=== PATIENT | female | born 2005 | race Caucasian/White ===

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

== ENCOUNTER 2024-03-08 01:37 | Outpatient (CLI) | payer MEDICAID, SELFPAY ==
--- OUTSIDE RECORDS SUMMARY | 2024-03-08 01:51 | XMS_ITS | Encounter Summary ---
Author Organization Health system Address [address] [place] [address] Care Team Providers Care Geoint Analyst Name Role Phone Unavailable Primary Care Provider Unavailabl e Encounter Details Date Type Department Care Team (Late st Contact Info) Description 09/09/2023 Lab Requisition [facility] Pathology & Laboratory Medicine - [facility] [address] [place] [address] Outr Resulting Lab, Provider Social History Tobacco Use Types Packs/Day Years Used Date Smoking Tobacco: Never Assessed Sex and Gender Information Value Date Recorded Sex Assigned at Not on file Gender Identity Not on file Sexual Orientation Not on file documented as of this encounter Plan of Treatment Not on file documented as of this encounter Procedures Procedure Name Priority Date/Time Associated Diagnosis Comments CCP ANTIBODIES Routine 09/08/2023 12:30 EST SYPHILIS SEROLOGY Routine 09/08/2023 12: 30 EST HEPATITIS C AB W REFLEX TO HCV RNA BY PCR Routine 09/08/2023 12:30 EST RHEUMATOID FACTOR Routine 09/08/2023 12: 30 EST ANTI NUCLEAR AB (JASON), IFA Routine 09/08/2023 12:30 EST documented in this encounter Results * SYPHILIS SEROLOGY (09/08/2023 12:30 EST) Syphilis Serology Negative Negative 09/11/2023 9:19 EDT [facility] Blood VENOUS BLOOD / Unknown 09/08/2023 12:30 EST 09/09/2023 21:20 EST Provider Outr Resulting Lab IMMUNOLOGY A ND SEROLOGY ORDERABLES Performing Organization Address [facility]/ZIP Co de Phone Number [facility] [address] [place] [address] * HEPATITIS C AB W REFLEX TO HCV RNA BY PCR (09/08/2023 12:30 EST) Hep C Antibody Negative Negative 09/11/2023 11:11 EDT [facility] Blood VENOUS BLOOD / Unknown 09/08/2023 12:30 EST 09/09/2023 21:20 EST Provider Outr Resulting Lab CHEMISTRY & BLOOD GAS ORDERABLES Performing Organization Address [facility] Co de Phone Number [facility] [address] [place] [address] * RHEUMATOID FACTOR (09/08/2023 12:30 EST) Pathologist [facility] Rheumatoid Factor <8.6 <12.0 IU/mL 09/09/2023 21:37 EST [facility] Blood VENOUS BLOOD / Unknown 09/08/2023 12:30 EST 09/09/2023 21:20 EST Provider Outr Resulting Lab CHEMISTRY & BLOOD GAS ORDERABLES Performing Organization Address [facility] Co de Phone Number [facility] [address] [place] [address] * ANTI NUCLEAR AB (JASON), IFA (09/08/2023 12:30 EST) Pathologist [facility] JASON Interpretation Negative Negative 2023 15:36 EDT [facility] Comment:No titer performed, JASON Screen is negative. Blood VENOUS BLOOD / Unknown 09/08/2023 12:30 EST 09/09/2023 21:20 EST Narrative [facility] - 09/12/2023 15:36 EDT Results were obtained with the INOVA NOVA Lite HEp-2 JASON Kit by indirect immunofluorescence. Provider Outr Resulting Lab IMMUNOLOGY A ND SEROLOGY ORDERABLES Performing Organization Address City/[facility] Co de Phone Number [facility] [address] [place] [address] * CCP ANTIBODIES (09/08/2023 12:30 EST) CCP Antibodies <2.5 See Note U/mL 09/11/2023 9:36 EDT [facility] Comment: NOTE: Reference range not established for patients <19 years old. Blood VENOUS BLOOD / Unknown 09/08/2023 12:30 EST 09/09/2023 21:20 EST Provider Outr Resulting Lab IMMUNOLOGY A ND SEROLOGY ORDERABLES Performing Organization Address [facility] Co de Phone Number [facility] [address] [place] [address] documented in this encounter Visit Diagnoses Not on filedocumented in this encounter
--- OUTSIDE RECORDS SUMMARY | 2024-03-08 01:51 | XMS_ITS | Clinical Summary ---
Author Organization [facility] Address [address] [place] [address] Care Team Providers Care Agile Java Developer Name Role Phone Unavailable Primary Care Provider Unavailabl e Social History Tobacco Use Types Packs/Day Years Used Date Smoking Tobacco: Never Assessed Sex and Gender Information Value Date Recorded Sex Assigned at Not on file Gender Identity Not on file Sexual Orientation Not on file Plan of Treatment Health Maintenance Due Date Last Done Comments COVID-19 Vaccine ( season) 2023 Hepatitis B Vaccine (1 of 3 - 19+ 3-dose series) 11/12 Hepatitis C Screen Completed 09/08/2023 Procedures Procedure Name Priority Date/Time Associated Diagnosis Comments HEPATITIS C AB W REFLEX TO HCV RNA BY PCR Routine 09/08/2023 12:30 EST from Last 3 Months or Most Recently Relevant to Health Maintenance Results * HEPATITIS C AB W REFLEX TO HCV RNA BY PCR (09/08/2023 12:30 EST) Hep C Antibody Negative Negative 09/11/2023 11:11 EDT [facility] Blood VENOUS BLOOD / Unknown 09/08/2023 12:30 EST 09/09/2023 21:20 EST Provider Outr Resulting Lab CHEMISTRY & BLOOD GAS ORDERABLES [facility] [address] [place] [address] from Last 3 Months or Most Recently Relevant to Health Maintenance
--- OUTSIDE RECORDS SUMMARY | 2024-03-08 01:51 | XMS_ITS | Encounter Summary ---
Author Organization [facility] Address [address] [place] [address] Care Team Providers Care Outbound Sales Consultant Name Role Phone Unavailable Primary Care Provider Unavailabl e Encounter Details Date Type Department Care Team (Late st Contact Info) Description 09/09/2023 Lab Requisition [facility] Pathology & Laboratory Medicine - [facility] [address] [place], [place] [id number] Outr Resulting Lab, Provider Social History Tobacco [...] Procedure Name Priority Date/Time Associated Diagnosis Comments HIV 1/2 ANTIGEN AND ANTIBODY, 4TH GENERATION Routine 09/08/2023 12:30 EST documented in this encounter Results * HIV 1/2 ANTIGEN AND ANTIBODY, 4TH GENERATION (09/08/2023 12:30 EST) HIV 1 and 2 Antibody/p24 Antigen, 4th Generation Negative Negative 09/11/2023 11:32 EDT [facility] Comment:If acute HIV-1 infec tion is suspected in a high risk patient, submit plasma specimen for HIV-1 RNA quantitation test. Blood VENOUS BLOOD / Unknown 09/08/2023 12:30 EST 09/09/2023 21:20 EST Narrative [facility] - 09/11/2023 11:32 EDT Fourth Generation assay performed on the Siemens Centaur XPT. Provider Outr Resulting Lab IMMUNOLOGY A ND SEROLOGY ORDERABLES [facility] [address] [place] [address] documented in this encounter Visit Diagnoses Not on filedocumented in this encounter
--- OUTSIDE RECORDS SUMMARY | 2024-03-08 01:51 | XMS_ITS | Encounter Summary ---
Author Organization [facility] Address [address] [place] [address] Care Team Providers Care Rn Radiation Name Role Phone Unavailable Primary Care Provider Unavailabl e Encounter Details Date Type Department Care Team (Late st Contact Info) Description 09/28/2023 Lab Requisition [facility] Pathology & Laboratory Medicine - [facility] [address] [place], [place] [id number] Outr Resulting Lab, Provider Social History Tobacco [...] Procedure Name Priority Date/Time Associated Diagnosis Comments DEXAMETHASONE SUPPRESSION TEST Routine 09/28/2023 7:58 EDT documented in this encounter Results * DEXAMETHASONE SUPPRESSION TEST (09/28/2023 7:58 EDT) Dexamethasone Supp <1.0 See Note ug/dL 09/28/2023 17:48 EDT [facility] Comment: Reference Range: >= 1.8 ug/dL = non-suppression < 1.8 ug/dL = suppression (normal) Blood VENOUS BLOOD / Unknown 09/28/2023 7:58 EDT 09/28/2023 16:45 EDT Narrative [facility] - 09/28/2023 17:48 EDT The results of this assay can be falsely elevated due to the consumption of Biotin. Provider Outr Resulting Lab CHEMISTRY & BLOOD GAS ORDERABLES [facility] [address] [place], [place] [address] documented in this encounter Visit Diagnoses Not on filedocumented in this encounter
--- OUTSIDE RECORDS SUMMARY | 2024-03-08 01:51 | XMS_ITS | Referral Summary ---
Author Organization [facility] Address [address] [place] [address] Care Team Providers Care Scruff Worker Name Role Phone Unavailable Primary Care Provider Unavailabl e Social History Tobacco Use Types Packs/Day Years Used Date Smoking Tobacco: Never Assessed Sex and Gender Information Value Date Recorded Sex Assigned at Not on file Gender Identity Not on file Sexual Orientation Not on file Plan of Treatment Not on file Procedures Procedure Name Priority Date/Time Associated Diagnosis Comments HEPATITIS C AB W REFLEX TO HCV RNA BY PCR Routine 09/08/2023 12:30 EST from Last 3 Months or Most Recently Relevant to Health Maintenance Results * HEPATITIS C AB W REFLEX TO HCV RNA BY PCR (09/08/2023 12:30 EST) Hep C Antibody Negative Negative 09/11/2023 11:11 EDT [facility] Blood VENOUS BLOOD / Unknown 09/08/2023 12:30 EST 09/09/2023 21:20 EST Provider Outr Resulting Lab CHEMISTRY & BLOOD GAS ORDERABLES [facility] [address] [place] [address] from Last 3 Months or Most Recently Relevant to Health Maintenance
--- OUTSIDE RECORDS SUMMARY | 2024-03-08 01:51 | XMS_ITS | Encounter Summary ---
Author Organization [facility] Address [address] [place] [address] Care Team Providers Care Inflated Pad Buffer Name Role Phone Unavailable Primary Care Provider Unavailabl e Encounter Details Date Type Department Care Team (Late st Contact Info) Description 09/09/2023 Lab Requisition [facility] Pathology & Laboratory Medicine - [address] [address] Outr Resulting Lab, Provider Social History Tobacco [...] Procedure Name Priority Date/Time Associated Diagnosis Comments CHLAMYDIA/N. GONORRHOEAE AMPLIFIED NUCLEIC ACID Routine 09/08/2023 12:30 EST documented in this encounter Results * CHLAMYDIA/N. GONORRHOEAE AMPLIFIED RNA (09/08/2023 12:30 EST) Neisseria gonorrhoeae Result Negative Negative 09/11/2023 14:24 EDT [facility] Chlamydia trachomatis Result Negative Negative 09/11/2023 14:24 EDT [facility] Urine URINE / Unknown 09/08/2023 1 2:30 EST 09/10/2023 17:47 EDT Narrative [facility] - 09/11/2023 14:24 EDT A first catch urine specimen is acceptable for detection of Gonorrhea and Chlamydia, but might detect up to 10% fewer infections when compared with vaginal and endocervical swab samples. Provider Outr Resulting Lab MICROBIOLOGY - GENERAL ORDERABLES [facility] [address] [place] [id number] documented in this encounter Visit Diagnoses Not on filedocumented in this encounter
--- NOTE | 2024-03-11 21:53 | PDOC.EEG_ITS ---
Neurology EEG EEG: [facility] Department of Neurology LONG-TERM AMBULATORY EEG REPORT Date of Recordin03/08/24 at 10:38:11 to 03/09/24 at 11:53:48 Interpreting Physician: Dr. Tete Saavedra PCP/Referring Provider: Federica Coello NP Reason for study: Darrian is a 18 year-old with blackout spells and other spells of LOC concerning for seizure. Current Medications: Home Medications ?Medication ?Instructions ?Recorded ?Confirmed ?Type acetylcysteine 600 mg capsule (NAC) 1,200 mg PO DAILY 04/07/22 02/29/24 History ascorbate calcium (vitamin C) 500 1 g PO DAILY 04/07/22 02/29/24 History mg tablet ferrous sulfate 325 mg (65 mg 325 mg PO Q OTHER DAY 04/07/22 02/29/24 History iron) tablet (FeroSul) magnesium citrate 100 mg tablet 400 mg PO DAILY 04/07/22 02/29/24 History pediatric multivit 22-vit D3 1,000 1 tab PO DAILY 04/07/22 02/29/24 History unit-vit K 800 mcg chewable tablet (Chewables Multivitamins-A,B,D,E,K,Zn) fluoxetine 10 mg capsule 10 mg PO DAILY 06/10/22 02/29/24 History etonogestrel 68 mg subdermal 1 implant subdermal ONCE 10/21/23 02/29/24 History implant (Nexplanon) levomefolate calcium 15 mg tablet 15 mg PO DAILY 10/21/23 02/29/24 History (Elfolate) vitamin B complex 1 cap PO DAILY 10/21/23 02/29/24 History cholecalciferol (vitamin D3) 25 25 mcg PO DAILY 11/06/23 02/29/24 History mcg (1,000 unit) capsule cyclobenzaprine 5 mg tablet 5 mg PO BID PRN 11/06/23 02/29/24 History melatonin 5 mg chewable tablet 12 mg PO HS PRN 02/29/24 02/29/24 History naltrexone 1.5 mg capsule mg PO 02/29/24 02/29/24 History norethindrone acetate 1.5 1 tab PO DAILY 02/29/24 02/29/24 History mg-ethinyl estradiol 30 mcg tablet (Microgestin) propranolol 10 mg tablet 10 mg PO BID #60 tabs 02/29/24 02/29/24 Rx rizatriptan 10 mg tablet See Rx Instructions PO .COMPLEX 02/29/24 02/29/24 Rx #10 tabs threonine 500 mg capsule (Pure 200 mg PO 02/29/24 02/29/24 History L-Threonine) METHODS: An 18-channel digitized electroencephalogram was recorded in the ambulatory setting with video. The 10/20 international system of electrode placement was used and bipolar and referential electrode montages were recorded. In addition to EEG the patient was monitored for EKG and by video. Activation procedures of photic stimulation and hyperventilation were performed if applicable. The duration of the recording was ~25 hours. DESCRIPTION OF EEG: Waking background activity: During maximal wakefulness a 9-Hz posterior background rhythm was present which was well-modulated, symmetrical, reactive to eye opening, and of moderate voltage. Faster frequencies were present in the bilateral anterior head regions. There was a normal anterior-posterior voltage gradient. Drowsy and sleeping background activity: During drowsiness, there was attenuation of the posterior dominant background rhythm and vertex waves. Normal stage II and III sleep was present with symmetrical sleep spindles, K- complexes, and vertex waves with slowing of the background rhythm to delta/theta frequencies. REM sleep manifested by rapid lateral eye movements and faster background rhythms was recorded. Arousal was unremarkable. Interictal abnormalities: There was continuous, high-amplitude, sharply- contoured activity intermixed with beta frequency activity over the right hemisphere, maximal over the temporal region (T4), consistent with a breach rhythm. Ictal findings: Event #1 on 03/08/24 at 21:30:04 -Clinical manifestations: ? Accidental button push. No symptoms reported. -EEG findings: Unchanged baseline EEG. Event #1 on 03/09/24 at 11:42:35 -Clinical manifestations: blurred vision, head pain, 'ticking' (involuntary repetitive neck movement), unable to get words out -EEG findings: Unchanged baseline EEG. Activating Procedures: Photic stimulation was performed which produced a symmetrical posterior driving response at various flash frequencies. Hyperventilation was performed with moderate effort and produced mild-moderate physiological slowing of the ba ckground. EKG: EKG revealed normal sinus rhythm. INTERPRETATION: This long-term EEG is abnormal due to: #1. Apparent right hemisphere breach rhythm. #2. Single event captured without any associated EEG changes or abnormalities. PRIOR EEG: none CLINICAL CORRELATION: The above breach finding over the right hemisphere is often seen with a skull defect. No known defect was reported. Clinical correlation recommended, consider XR or CT of the skull if indicated. Otherwise, no epileptiform activity was present. A single event was captured as above which is classified as non-epileptic. Tete Saavedra MD Date of service: 03/08/24
== END 2024-03-08 01:38 | disposition home or self-care (01) ==
LOC: RT 01:37
PROVIDERS: PCP Physician Assistant Medical; Visit Provider Nurse Practitioner Adult Health
DX: R68.89 Other general symptoms and signs (principal); R55 Syncope and collapse; R94.01 Abnormal electroencephalogram [EEG]
CPT/HCPCS: 95714; 95720

== ENCOUNTER 2024-04-22 16:52 | Outpatient (REF) | payer MEDICAID, SELFPAY ==
[2024-04-22 16:00] LABS: Abs Immature Grans 0.03 10^3/uL (0.0-0.06); Absolute Basophil Count 0.04 10^3/uL (0.0-0.2); Absolute Eosinophil Count 0.08 10^3/uL (0.0-0.7); Absolute Lymphocyte Count 2.24 10^3/uL (1.2-3.4); Absolute Monocyte Count 0.33 10^3/uL (0.1-0.8); Absolute Neutrophil Count 6.26 10^3/uL (1.2-6.7); Basophils % 0.4 %; Eosinophils % 0.9 %; HCT 44.6 % (36.0-46.0); Immature Grans % 0.3 %; Lymphocytes % 24.9 %; MCHC 33.6 % (32.0-36.0); MCV 89 fL (80-95); MPV 10.5 fL (8.0-11.0); Monocytes % 3.7 %; Neutrophils % 69.8 %; Platelet Count 285 10^3/uL (130-400); WBC 8.98 10^3/uL (4.4-10.8)
--- OUTSIDE RECORDS SUMMARY | 2024-04-22 16:54 | XMS_ITS | Encounter Summary ---
Author Organization [facility] Address [address] [place] [address] Care Team Providers Care Assembler Tubing Name Role Phone Unavailable Primary Care Provider Unavailabl e Encounter Details Date Type Department Care Team (Late st Contact Info) Description 09/09/2023 Lab Requisition [facility] Pathology & Laboratory Medicine - [address] [address] Outr Resulting Lab, Provider Social History Tobacco [...] gonorrhoeae Result Negative Negative 09/11/2023 14:24 EDT [facility] Chlamydia trachomatis Result Negative Negative 09/11/2023 14:24 EDT [facility] Urine URINE / Unknown 09/08/2023 1 2:30 EST 09/10/2023 17:47 EDT Narrative [facility] - 09/11/2023 14:24 EDT A first catch urine specimen is acceptable for detection of Gonorrhea and Chlamydia, but might detect up to 10% fewer infections when compared with vaginal and endocervical swab samples. Provider Outr Resulting Lab MICROBIOLOGY - GENERAL ORDERABLES [facility] [address] [place] [id number] documented in this encounter Visit Diagnoses Not on filedocumented in this encounter
--- OUTSIDE RECORDS SUMMARY | 2024-04-22 16:54 | XMS_ITS | Encounter Summary ---
Author Organization [facility] Address [address] [place] [address] Care Team Providers Care Graphic Engineer Name Role Phone Unavailable Primary Care Provider Unavailabl e Encounter Details Date Type Department Care Team (Late st Contact Info) Description 09/28/2023 Lab Requisition [facility] Pathology & Laboratory [facility] - [facility] [address], [place] [id number] Outr Resulting Lab, Provider Social History Tobacco [...] <1.0 See Note ug/dL 09/28/2023 17:48 EDT [facility] Comment: Reference Range: >= 1.8 ug/dL = non-suppression < 1.8 ug/dL = suppression (normal) Blood VENOUS BLOOD / Unknown 09/28/2023 7:58 EDT 09/28/2023 16:45 EDT Narrative [facility] - 09/28/2023 17:48 EDT The results of this assay can be falsely elevated due to the consumption of Biotin. Provider Outr Resulting Lab CHEMISTRY & BLOOD GAS ORDERABLES [facility] [address] [place], [place] [address] documented in this encounter Visit Diagnoses Not on filedocumented in this encounter
--- OUTSIDE RECORDS SUMMARY | 2024-04-22 16:54 | XMS_ITS | Encounter Summary ---
Author Organization [facility] Address [address] [place] [address] Care Team Providers Care Color Depositing Machine Tender Name Role Phone Unavailable Primary Care Provider Unavailabl e Encounter Details Date Type Department Care Team (Late st Contact Info) Description 09/09/2023 Lab Requisition [facility] Pathology & Laboratory Medicine - [facility] [address] [place] [address] Outr Resulting Lab, Provider Social History Tobacco [...] Syphilis Serology Negative Negative 09/11/2023 9:19 EDT [facility] Blood VENOUS BLOOD / Unknown 09/08/2023 12:30 EST 09/09/2023 21:20 EST Provider Outr Resulting Lab IMMUNOLOGY A ND SEROLOGY ORDERABLES Performing Organization Address [facility]/ZIP Co de Phone Number [facility] [address] [place] [address] * HEPATITIS C AB W REFLEX TO HCV RNA BY PCR (09/08/2023 12:30 EST) Hep C Antibody Negative Negative 09/11/2023 11:11 EDT [facility] Blood VENOUS BLOOD / Unknown 09/08/2023 12:30 EST 09/09/2023 21:20 EST Provider Outr Resulting Lab CHEMISTRY & BLOOD GAS ORDERABLES Performing Organization Address [facility] Co de Phone Number [facility] [address] [place] [address] * RHEUMATOID FACTOR (09/08/2023 12:30 EST) Pathologist [facility] Rheumatoid Factor <8.6 <12.0 IU/mL 09/09/2023 21:37 EST [facility] Blood VENOUS BLOOD / Unknown 09/08/2023 12:30 EST 09/09/2023 21:20 EST Provider Outr Resulting Lab CHEMISTRY & BLOOD GAS ORDERABLES Performing Organization Address [facility] Co de Phone Number [facility] [address] [place] [address] * ANTI NUCLEAR AB (JASON), IFA (09/08/2023 12:30 EST) Pathologist [facility] JASON Interpretation Negative Negative 2023 15:36 EDT [facility] Comment:No titer performed, JASON Screen is negative. Blood VENOUS BLOOD / Unknown 09/08/2023 12:30 EST 09/09/2023 21:20 EST Narrative [facility] - 09/12/2023 15:36 EDT Results were obtained with the INOVA NOVA Lite HEp-2 JASON Kit by indirect immunofluorescence. Provider Outr Resulting Lab IMMUNOLOGY A ND SEROLOGY ORDERABLES Performing Organization Address City/[facility] Co de Phone Number [facility] [address] [place] [address] * CCP ANTIBODIES (09/08/2023 12:30 EST) CCP Antibodies <2.5 See Note U/mL 09/11/2023 9:36 EDT [facility] Comment: NOTE: Reference range not established for patients <19 years old. Blood VENOUS BLOOD / Unknown 09/08/2023 12:30 EST 09/09/2023 21:20 EST Provider Outr Resulting Lab IMMUNOLOGY A ND SEROLOGY ORDERABLES Performing Organization Address [facility] Co de Phone Number [facility] [address] [place] [address] documented in this encounter Visit Diagnoses Not on filedocumented in this encounter
--- OUTSIDE RECORDS SUMMARY | 2024-04-22 16:54 | XMS_ITS | Referral Summary ---
Author Organization [facility] Address [address] [place] [address] Care Team Providers Care Rolling Mill Plugger Name Role Phone Unavailable Primary Care Provider [...] C Antibody Negative Negative 09/11/2023 11:11 EDT [facility] Blood VENOUS BLOOD / Unknown 09/08/2023 12:30 EST 09/09/2023 21:20 EST Provider Outr Resulting Lab CHEMISTRY & BLOOD GAS ORDERABLES [facility] [address] [place] [address] from Last 3 Months or Most Recently Relevant to Health Maintenance
--- OUTSIDE RECORDS SUMMARY | 2024-04-22 16:54 | XMS_ITS | Encounter Summary ---
Author Organization [facility] Address [address] [place] [address] Care Team Providers Care Elevator Tender Name Role Phone Unavailable Primary Care Provider Unavailabl e Encounter Details Date Type Department Care Team (Late st Contact Info) Description 09/09/2023 Lab Requisition [facility] Pathology & Laboratory Medicine - [facility] [address] [place], [place] [phone] Outr Resulting Lab, Provider Social History Tobacco [...] 4th Generation Negative Negative 09/11/2023 11:32 EDT [facility] Comment:If acute HIV-1 infec tion is suspected in a high risk patient, submit plasma specimen for HIV-1 RNA quantitation test. Blood VENOUS BLOOD / Unknown 09/08/2023 12:30 EST 09/09/2023 21:20 EST Narrative [facility] - 09/11/2023 11:32 EDT Fourth Generation assay performed on the Siemens Centaur XPT. Provider Outr Resulting Lab IMMUNOLOGY A ND SEROLOGY ORDERABLES [facility] [address] [place] [address] documented in this encounter Visit Diagnoses Not on filedocumented in this encounter
--- OUTSIDE RECORDS SUMMARY | 2024-04-22 16:54 | XMS_ITS | Clinical Summary ---
Author Organization [facility] Address [address] [place] [address] Care Team Providers Care Renewable Energy Technician Name Role Phone Unavailable Primary Care Provider [...] C Antibody Negative Negative 09/11/2023 11:11 EDT [facility] Blood VENOUS BLOOD / Unknown 09/08/2023 12:30 EST 09/09/2023 21:20 EST Provider Outr Resulting Lab CHEMISTRY & BLOOD GAS ORDERABLES [facility] [address] [place] [address] from Last 3 Months or Most Recently Relevant to Health Maintenance
[2024-04-22 18:03] LABS: TSH (W/Ref FT4) 1.11 uIU/mL (0.52-4.13); Vitamin D 25 Total 73.3 ng/mL (30-100)
== END 2024-04-22 16:53 | disposition home or self-care (01) ==
LOC: NCHCN 16:52
PROVIDERS: PCP Physician Assistant Medical; Visit Provider Physician Assistant Medical
DX: D58.2 Other hemoglobinopathies (principal); F32.9 Major depressive disorder, single episode, unspecified
CPT/HCPCS: 82306; 84443; 85025

== ENCOUNTER 2024-10-08 13:16 | Outpatient (REF) | payer MEDICAID, SELFPAY ==
[2024-10-08 15:15] LABS: Abs Immature Grans 0.01 10^3/uL (0.0-0.06); Absolute Basophil Count 0.03 10^3/uL (0.0-0.2); Absolute Eosinophil Count 0.05 10^3/uL (0.0-0.7); Absolute Neutrophil Count 3.55 10^3/uL (1.2-6.7); Basophils % 0.5 %; Eosinophils % 0.9 %; HCT 45.8 % (36.0-46.0); HGB 15.3 g/dL (11.2-15.7); Immature Grans % 0.2 %; Lymphocytes % 31.4 %; MCH 29.4 pg (27.0-33.0); MCHC 33.4 % (32.0-36.0); MCV 88 fL (80-95); MPV 10.4 fL (8.0-11.0); Monocytes % 5.2 %; Neutrophils % 61.8 %; Platelet Count 276 10^3/uL (130-400); RBC 5.21 10^6/uL (3.93-5.22); RDW 12.2 % (11.7-14.6); RDW-SD 39.3 fL; WBC 5.74 10^3/uL (4.4-10.8)
[2024-10-08 15:40] LABS: Hemoglobin A1C 5.1 % (<5.7)
[2024-10-08 15:46] LABS: ALT 22 U/L (14-59); AST 20 U/L (15-37); Albumin 3.7 g/dL (3.4-5.0); Alkaline Phosphatase 29 U/L (46-116); Anion Gap 6.4 mmol/L (3-11); BUN 7 mg/dL (7-18); Bilirubin, Total 0.3 mg/dL (0.2-1.0); CO2 29.6 mmol/L (21.0-32.0); Calcium 9.5 mg/dL (8.5-10.1); Calculated LDL 121 mg/dL (<100); Chloride 106 mmol/L (98-107); Cholesterol 210 mg/dL (<200); Estimated GFR 83.23 (mL/min/1.73m2); Glucose 77 mg/dL (74-106); HDL Cholesterol 53 mg/dL (>or=50); Potassium 4.7 mmol/L (3.5-5.1); Sodium 142 mmol/L (136-145); TSH 1.38 uIU/mL (0.52-4.13); Total Protein 7.7 g/dL (6.4-8.2); Triglyceride 180 mg/dL (<150)
[2024-10-08 16:38] LABS: FREE T4 0.88 ng/dL (0.78-1.34)
== END 2024-10-08 13:17 | disposition home or self-care (01) ==
LOC: NCHCN 13:16
PROVIDERS: PCP Physician Assistant Medical; Visit Provider Physician Assistant Medical
DX: R22.1 Localized swelling, mass and lump, neck (principal); Z51.81 Encounter for therapeutic drug level monitoring
CPT/HCPCS: 80053; 80061; 83036; 84439; 84443; 85025

== ENCOUNTER 2024-10-28 00:09 | Outpatient (CLI) | payer MEDICAID, SELFPAY ==
--- NOTE | 2024-10-28 | DI.US_ITS ---
Exam(s) US SOFT TISSUE HEAD OR NECK EXAM: US SOFT TISSUE HEAD OR NECK CLINICAL HISTORY: NECK SWELLING, R22.1, LOCALIZED SWELLING/MASS/LUMP NECK. TECHNIQUE: Ultrasound was performed using standard protocol. COMPARISON: No exams were available for comparison FINDINGS: Sonographic assessment utilizing grayscale and color Doppler imaging was performed and targeted to th e area of clinical concern. No abnormality is identified in the area of palpable lump. The largest lymph node on the right side of the neck measuring 2.6 cm in length which appears sonogra phically normal. IMPRESSION: No sonographic abnormality is visible associated with the lump in the anterior midline neck. DATA REPOSITORY:
== END 2024-10-28 00:29 ==
LOC: DI 00:09
PROVIDERS: PCP Physician Assistant Medical; Visit Provider Physician Assistant Medical
DX: R22.1 Localized swelling, mass and lump, neck (principal)
CPT/HCPCS: 76536

== ENCOUNTER 2025-01-27 16:12 | Outpatient (REF) | payer MEDICAID, SELFPAY ==
[2025-01-27 19:52] LABS: Abs Immature Grans 0.02 10^3/uL (0.0-0.06); HCT 41.9 % (36.0-46.0); HGB 13.5 g/dL (11.2-15.7); Immature Grans % 0.2 %; MCH 29.2 pg (27.0-33.0); MCHC 32.2 % (32.0-36.0); MCV 91 fL (80-95); MPV 10.5 fL (8.0-11.0); Platelet Count 309 10^3/uL (130-400); RBC 4.62 10^6/uL (3.93-5.22); RDW 12.2 % (11.7-14.6); RDW-SD 40.5 fL; WBC 9.93 10^3/uL (4.4-10.8)
[2025-01-27 20:13] LABS: ALT 30 U/L (14-59); AST 32 U/L (15-37); Albumin 3.7 g/dL (3.4-5.0); Alkaline Phosphatase 33 U/L (46-116); Anion Gap 9.3 mmol/L (3-11); BUN 6 mg/dL (7-18); Bilirubin, Total 0.2 mg/dL (0.2-1.0); CO2 25.7 mmol/L (21.0-32.0); Calcium 9.4 mg/dL (8.5-10.1); Chloride 104 mmol/L (98-107); Estimated GFR 82.71 (mL/min/1.73m2); Glucose 83 mg/dL (74-106); Potassium 4.3 mmol/L (3.5-5.1); Sodium 139 mmol/L (136-145); TSH 1.45 uIU/mL (0.36-3.74); Total Protein 7.4 g/dL (6.4-8.2)
== END 2025-01-27 16:13 | disposition home or self-care (01) ==
LOC: NCHCN 16:12
PROVIDERS: PCP Physician Assistant Medical; Visit Provider Physician Assistant Medical
DX: F25.9 Schizoaffective disorder, unspecified (principal)
CPT/HCPCS: 80053; 84439; 84443; 85025

== ENCOUNTER 2025-04-28 16:00 | Outpatient (REF) | payer MEDICAID, SELFPAY ==
[2025-04-29 18:39] LABS: Hepatitis C Ab w Rflx HCV PCR Negative (Negative)
[2025-04-29 18:56] LABS: HIV-1/2 Ag & Ab Screen Negative (Negative)
[2025-04-30 11:56] LABS: Syphilis Serology (RPR) Negative (Negative)
[2025-04-30 14:49] LABS: Bacterial Vaginosis (BV) Positive (Negative); Candida glabrata Negative (Negative); Candida species group Positive (Negative)
== END 2025-04-28 16:01 | disposition home or self-care (01) ==
LOC: NCHCN 16:00
PROVIDERS: PCP Physician Assistant Medical; Visit Provider Physician Assistant Medical
DX: Z11.3 Encounter for screening for infections with a predominantly sexual mode of transmission (principal)
CPT/HCPCS: 81513; 86803; 87389; 87481; 87661; 86592

== ENCOUNTER 2025-05-20 21:24 | Emergency (ER) | payer MEDICAID, SELFPAY ==
[2025-05-20 21:28] VITALS: BP 138/91; PULSE 107; RESP 20; TEMP 37; O2SAT 99
--- NOTE | 2025-05-20 21:59 | W.ED.GENAD ---
Discharge Plan Disposition Patient Disposition: Home Condition: Good Discharge Details Clinical Impression: Suicidal ideation Primary Care Provider: Gi Evans ED Provider: Tao Graham [place] Meds and New Rx's Prescriptions: Continued ascorbate calcium (vitamin C) 500 mg tablet 1 g PO DAILY ferrous sulfate [FeroSul] 325 mg (65 mg iron) tablet 325 mg PO Q OTHER DAY acetylcysteine [NAC] 600 mg capsule 1,200 mg PO DAILY Rx Instructions: 1-2 tabs magnesium citrate 100 mg tablet 400 mg PO DAILY melatonin 5 mg tablet,chewable 12 mg PO HS PRN Rx Instructions: 2 tabs norethindrone ac-eth estradiol [Microgestin 1.5/30 (21)] 1.5-30 mg-mcg tablet 1 tab PO DAILY naltrexone 1.5 mg capsule 1.5 mg PO rizatriptan 10 mg tablet See Rx Instructions PO .COMPLEX Qty: 10 3RF Rx Instructions: take 1 tab at onset of headache; if no relief may repeat 1 tab after at least 2 hrs; max = 2 tabs/24 hr PO methylphenidate HCl 5 mg tablet 5 mg PO DAILY lorazepam 0.5 mg tablet 0.5 mg PO QHS PRN aripiprazole 5 mg tablet 5 mg PO QHS cyclobenzaprine 5 mg tablet 5 mg PO BID PRN cholecalciferol (vitamin D3) 25 mcg (1,000 unit) capsule 25 mcg PO DAILY Pure L-Threonine 500 mg capsule 200 mg PO Chewable Multivit-A,B,D,E,K,Zn 1,000-800 unit-mcg tablet,chewable 1 tab PO DAILY levomefolate calcium [Elfolate] 15 mg tablet 15 mg PO DAILY vitamin B complex Capsule 1 cap PO DAILY Patient Comments: TAKE ONE CAPSULE BY MOUTH EVERY DAY Nexplanon 68 mg implant 1 implant subdermal ONCE Rx Instructions: as a single dose hydroxyzine HCl 10 mg tablet 10 mg PO Q6H Patient Comments: TAKE ONE TABLET BY MOUTH EVERY 4 TO 6 HOURS NEEDED lithium carbonate 300 mg tablet 300 mg PO DAILY Patient Comments: TAKE ONE TABLET BY MOUTH THREE TIMES A DAY divalproex 250 mg tablet,delayed release (DR/EC) 250 mg PO QPM Patient Comments: TAKE ONE TABLET BY MOUTH TWICE A DAY Discharge Instructions Instructions: Suicide Prevention Additional Instructions: You were seen in the ED for thoughts of self harm and was seen by mental health. A safety plan has been developed and you will be discharge home with Mom. Follow the safety plan, follow up with your outpatient providers as scheduled and return to ED for worsening depression, feeling unsafe, increasing thoughts of self harm. Stand Alone Forms: Portal Information HPI <Annalisa Ferrara NP - Last Filed: 05/20/25 23:16> General Mode of arrival: ambulatory. Date/Time Provider Initiated Documentation: 05/20/25 21:26. Limitations to Documentation: no limitations. Information obtained by: patient, family (Mom), RN notes reviewed and old records reviewed. HPI Narrative: 19-year-old female transitioning to a male presents to the ER accompanied by mother with chief complaint of suicidal ideation. Patient also has been having self has some superficial abrasions noted to his right upper thigh. Does endorse some plan of overdosing on medications. Patient has extensive mental health history and extensive medication list. Mom states he has had no recent medication changes and Depakote was added to his regimen which she has noticed a decrease in symptoms since then. Patient also takes lithium daily. He did take his p.m. medications as prescribed. Past medical history includes PTSD depression Related Data Home Medications Medication Instructions Recorded Confirmed acetylcysteine 600 mg capsule (NAC) 1,200 mg PO DAILY 04/07/22 05/20/25 ascorbate calcium (vitamin C) 500 1 g PO DAILY 04/07/22 05/20/25 mg tablet ferrous sulfate 325 mg (65 mg 325 mg PO Q OTHER DAY 04/07/22 05/20/25 iron) tablet (FeroSul) magnesium citrate 100 mg tablet 400 mg PO DAILY 04/07/22 05/20/25 pediatric multivit 22-vit D3 1,000 1 tab PO DAILY 04/07/22 05/20/25 unit-vit K 800 mcg chewable tablet (Chewables Multivitamins-A,B,D,E,K,Zn) etonogestrel 68 mg subdermal 1 implant subdermal ONCE 10/21/23 05/20/25 implant (Nexplanon) levomefolate calcium 15 mg tablet 15 mg PO DAILY 10/21/23 05/20/25 (Elfolate) vitamin B complex 1 cap PO DAILY 10/21/23 05/20/25 cholecalciferol (vitamin D3) 25 25 mcg PO DAILY 11/06/23 05/20/25 mcg (1,000 unit) capsule cyclobenzaprine 5 mg tablet 5 mg PO BID PRN 11/06/23 05/20/25 melatonin 5 mg chewable tablet 12 mg PO HS PRN 02/29/24 05/20/25 naltrexone 1.5 mg capsule 1.5 mg PO 02/29/24 06/12/24 norethindrone acetate 1.5 1 tab PO DAILY 02/29/24 05/20/25 mg-ethinyl estradiol 30 mcg tablet (Microgestin) rizatriptan 10 mg tablet See Rx Instructions PO .COMPLEX 02/29/24 05/20/25 #10 tabs threonine 500 mg capsule (Pure 200 mg PO 02/29/24 06/12/24 L-Threonine) aripiprazole 5 mg tablet 5 mg PO QHS 06/12/24 05/20/25 lorazepam 0.5 mg tablet 0.5 mg PO QHS PRN 06/12/24 05/20/25 methylphenidate HCl 5 mg tablet 5 mg PO DAILY 06/12/24 05/20/25 divalproex 250 mg tablet,delayed 250 mg PO QPM 05/20/25 05/20/25 release hydroxyzine HCl 10 mg tablet 10 mg PO Q6H 05/20/25 05/20/25 lithium carbonate 300 mg tablet 300 mg PO DAILY 05/20/25 05/20/25 Previous Rx's Medication Instructions Recorded rizatriptan 10 mg tablet See Rx Instructions PO .COMPLEX 02/29/24 #10 tabs Allergies Allergy/AdvReac Type Severity Reaction Status Date / Time cephalexin (From Keflex) Allergy Severe Wheezing Verified 05/20/25 21:32 clindamycin Allergy Severe Skin Rash Verified 05/20/25 21:32 Sulfa (Sulfonamide Allergy Intermediate itchy rash Verified 05/20/25 21:32 Antibiotics) bupropion (From Wellbutrin) Allergy Unknown Nausea Verified 05/20/25 21:32 Penicillins Allergy Unknown mom and Verified 05/20/25 21:32 dad allergic gluten Allergy Severe Other (See Uncoded 05/20/25 21:32 Comment) General Stated Complaint: PsychEval MIRELLA: 2 Review of Systems <Annalisa Ferrara NP - Last Filed: 05/20/25 23:16> All systems reviewed & are unremarkable except as noted in HPI and below Psychiatric Psychiatric: Reports as per HPI, Reports depression and Reports suicidal ideation Exam <Annalisa Ferrara NP - Last Filed: 05/20/25 23:16> Narrative Exam Narrative: Constitutional: Alert and oriented x3. Appears stated age. Normal body habitus. Head: Normocephalic, no trauma. Eyes: Pupils PERRL, Red reflex noted, EOM's intact. Eyelids symmetrical without lesions, discharge, or swelling. Chest: RRR, Normal S1, S2, distal pulses intact. Resp: Lungs clear to auscultation bilaterally, no wheezes, rales, or rhonchi. Abdomen: Soft, non-distended, Normoactive bowel sounds all 4 quads. Musculoskeletal: Normal gait, Moves all 4 extremities without difficulty. Skin: Capillary refill less than 2 sec. Neurologic: Cranial nerves II-XII intact. Alert and oriented x 3. Motor: No deficits noted. Sensory: Intact bilaterally all 4 extremities. Hematologic/Lymphatic: No ecchymosis, no lymphadenopathy. Psychiatric: See below Skin Trauma: abrasion (Multiple superficial linear abrasions noted to right thigh) Psych Mood: euphoric mood Affect: euphoric affect Attitude: cooperative Thought Process: normal Thought Content: suicidality Insight: fair Judgment: fair Course <Annalisa Ferrara NP - Last Filed: 05/20/25 23:16> Vital Signs Vital signs: Vital Signs Temperature 37.0 C 05/20/25 21:28 Pulse 107 H 05/20/25 21:28 Respiratory Rate 20 05/20/25 21:28 Blood Pressure 138/91 H 05/20/25 21:28 Pulse Oximetry 99 05/20/25 21:28 Temperature 37.0 C 05/20/25 21:28 Pulse 107 H 05/20/25 21:28 Respiratory Rate 20 05/20/25 21:28 Blood Pressure 138/91 H 05/20/25 21:28 Blood Pressure Position Sitting 05/20/25 21:28 Pulse Oximetry 99 05/20/25 21:28 Oxygen Delivery Method Room Air 05/20/25 21:28 Oxygen Flow Rate 0 05/20/25 21:28 Medical Decision Making <Annalisa Ferrara NP - Last Filed: 05/20/25 23:16> 19-year-old female transitioning to a male presents to the ER accompanied by mother with chief complaint of suicidal ideation. Patient also has been having self has some superficial abrasions noted to his right upper thigh. Does endorse some plan of overdosing on medications. Patient has extensive mental health history and extensive medication list. Mom states he has had no recent medication changes and Depakote was added to his regimen which she has noticed a decrease in symptoms since then. Patient also takes lithium daily. He did take his p.m. medications as prescribed. Past medical history includes PTSD depression Nucla level, ordered UDS urinalysis urine and mental health eval. paged. at for patient eval at this time. Care to be handed off to oncoming provider Dr. Graham pending eval. Lab Data Lab results reviewed: Yes I reviewed the patient's lab results. Labs: Laboratory Tests Range/Units 05/20/25 05/20/25 22:13 22:18 Urine Color (Yellow) Yellow Urine Clarity (Clear) Clear Urine pH (5-8) 6.0 Ur Specific [place] (1.005-1.025) >= 1.030 H Urine Protein (Neg-Trace) mg/dL 30 H Urine Ketones (Negative) mg/dL 15 H Urine Blood (Negative) Negative Urine Nitrite (Negative) Negative Urine Bilirubin (Negative) Negative Urine Urobilinogen (Up to 0.2) mg/dL 0.2 Ur Leukocyte Esterase (Negative) Negative Urine RBC (0-2) HPF 0-2 Urine WBC (0-5) HPF 3-5 Ur Epithelial Cells (Negative) HPF Few Urine Crystals (Negative) HPF Negative Urine Bacteria (Negative) HPF Rare Urine Casts (Negative) LPF Negative Urine Mucus (Negative) Trace Ur Culture Indicated? No Urine Glucose (Negative) mg/dL Negative Urine Opiates Screen (Negative) Negative Urine Methadone Screen (Negative) Negative Ur Barbiturates Screen (Negative) Negative Ur Tricyclics Screen (Negative) Negative Ur Amphetamines Screen (Negative) Negative U Benzodiazepines Scrn (Negative) Negative Nucla (0.60-1.20) mmol/L 0.60 Urine Cocaine Screen (Negative) Negative U Cannabinoids Screen (Negative) Positive A <Tao Graham MD - Last Filed: 05/20/25 23:50> 19-year-old female transitioning to a male presents to the ER accompanied by mother with chief complaint of suicidal ideation. Patient also has been having self has some superficial abrasions noted to his right upper thigh. Does endorse some plan of overdosing on medications. Patient has extensive mental health history and extensive medication list. Mom states he has had no recent medication changes and Depakote was added to his regimen which she has noticed a decrease in symptoms since then. Patient also takes lithium daily. He did take his p.m. medications as prescribed. Past medical history includes PTSD depression Nucla level, ordered UDS urinalysis urine and mental health eval. paged. at for patient eval at this time. Care to be handed off to oncoming provider Dr. Graham pending eval. 23:45 - Patient will be discharge home with mother with safety plan in place. Has appointment tomorrow with counselor and with psychiatrist. Return precautions provided. PFSH <Annalisa Ferrara NP - Last Filed: 05/20/25 23:16> All Active Problems (Updated 05/20/25 @ 23:47 by Tao Graham MD) Suicidal ideation (Acute) Migraine headache without aura (Acute) Spells of decreased attentiveness (Acute) Abnormal uterine bleeding (AUB) (Acute) when changed from DepoProvera to Nexplanon 2020. 05/2022. Rx with [facility]. Nexplanon in place. 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 (Acute) Psychosocial stressors (Acute) Menorrhagia (Acute) Medical History Weight loss Tic disorder Stress reaction with psychomotor agitation Sleep disturbances Rash, skin Sexual dysfunction Right foot pain Right ankle pain Panic disorder Migraine Menometrorrhagia Right leg pain Insomnia Hypermobility syndrome Hx of varicella Hx of self mutilation History of gluten intolerance Easy bruising History of depression PTSD (post-traumatic stress disorder) Depression Family History Maternal Grandfather Heart disease Hyperlipidemia Tremor Neuropathy Paternal Grandfather Hypertension Uncle Stroke Paternal Grandmother Heart disease Mother Neuropathy Social History Smoking/Tobacco Use Status: Never Smoking risk assessment performed?: Yes Alcohol Intake: never Drug use: Daily Substance use type: marijuana and other Details: GUMMIES Do you feel safe at home: Yes Do you feel safe in your relationship?: Yes
[2025-05-20 22:31] LABS: Glucose Negative (Negative)
[2025-05-20 22:33] LABS: C & S Indicated? No; RBC 0-2 HPF (0-2)
[2025-05-20 22:46] LABS: Lithium 0.60 mmol/L (0.60-1.20)
[2025-05-20 22:53] LABS: Cannabinoids THC Positive (Negative)
--- NOTE | 2025-05-21 01:40 | PDOC.MHCN ---
Date of service: 05/20/25 Time of Service: 22:42 PHQ-9 Over the last 2 weeks, how often have you been bothered by any of the following problems? 1. Little interest or pleasure in doing things: nearly every day 2. Feeling down, depressed, or hopeless: nearly every day 3. Trouble falling or staying asleep, or sleeping too much: several days 4. Feeling tired or having little energy: nearly every day 5. Poor appetite or overeating: several days 6. Feeling bad about yourself - or that you are a failure or have let yourself and your family down: nearly every day 7. Trouble concentrating on things, such as reading the newspaper or watching television: nearly every day 8. Moving or speaking so slowly that other people could have noticed? - Or the opposite - being so fidgety or restless that you have been moving around a lot more than usual: nearly every day 9. Thoughts that you would be better off or of hurting yourself in some way: more than half the days Total score: 22 If you checked off any problems, how difficult have these problems made it for you to do your work, take care of things at home, or get along with other people?: extremely difficult Source: Developed by Drs. Tao Chicas, Allison Giles, Bhupinder Nguyen and colleagues, with an educational micheal from [employer]. Suicide Severity Rate CSSRS Have you wished you were or wished you could go to sleep and not wake up?: Yes Have you actually had any thoughts of killing yourself?: Yes CSSRS2 Have you been thinking about how you might do this?: Yes Have you had these thoughts and had some intention of acting on them?: Yes Have you started to work out or worked out the details of how to kill yourself? Do you intend to carry out this plan?: No CSSRS3 Have you ever done anything, started to do anything or prepared to do anything to end your life?: Yes CSSRS4 Was this within the past three months?: No Screening Score Total Score: 6 Screening: Positive Mental Health Emergency Note Release [facility] release signed:: Yes Reason for Visit The client presented to the [facility] ED for current NSSI and SI with intent and a plan. The client is not known to [facility] or this clinician. The client self reports to never have been hospitalized in the past for his mental health. The client is supported by their therapist Keiko Roth and psychiatrists Hanny Camacho. In the last 2 weeks has the pt presented for ES prior to today?: No Client Information Client is: New Well Housed: Yes Non Suicidal Self Injury Current: Yes, The client reports NSSI by cutting his legs and thighs. History: yes, The client reports to have engaged in NSSI by cutting since the age of 10. Safety Risk/Harm to Self or Others Current Ideation to Harm Self or Others: Yes to self. Intent: yes, has intent. Plan: yes,has a plan. History of suicide attempt: No history of suicide attempt reported CALM/Risk Level Does risk to harm exist?: yes. Access to means: Yes. Types of Means: Other weapons, Medication and Other. Details: The client reports having access to medications, SHARPS and ropes. . Counseling provided: No Risk: Moderate Risk Duty to warn indicated: No Asssessment/Mental Status Appearance: Well groomed Attitude: Cooperative and Friendly Behavior: Unremarkable Speech: Normal Affect: Cogruent with mood Mood: Other (The client reports their mood as on edge) Thought process: Goal directed Hallucinations: yes, Visual (The client reports visual hallucinations of seeing things out of the corner of his eyes.) Delusions: No Attention: Unremarkable Perception: Not impaired Orientation: Fully orientated Memory: Intact Insight: Fair Judgement: Fair Neurovegetative Symptoms Sleep: No change Appetitie: No change Interests: Decrease Energy: Decrease Libido: Not applicable Additional Issues: Assaultive/Threatening Behavior: No Medical Concerns: No Client engaged in active self harm w/weapon: Yes Threatening to run away: No Child reported abuse/neglect: No Voluntarily presenting for services: Yes Domestic violence is a concern: No Extreme Psychosis or extreme behavior is present: No Impression The client is a 19 year old biological female who identifies as he/him/his and resides in [place], [place] with his mother. The client presents in a well groomed appearance and is seen wearing blue paper scrubs sitting in their hospital bed. Affect is congruent with mood and speech is in normal range. Client is friendly and cooperative with this clinician; they report their mood as on edge. Thought process appears to be goal directed. There are no delusions observed by this clinician. The client denies auditory hallucinations and reports visual hallucinations of seeing things out of the corner of his eyes. Cognitive assessment reveals orientation to person, place and time. The client reports coming to the [facility] ED for current NSSI and SI with intent and plan. The client states they cut themselves today for the first time in awhile and expressed wanting to continue and suicidal thoughts over the last week. The client reports going through a major break up two months ago from a two year relationship . The client reports that he is dropping out of college as he has been struggling, not doing school work and is now failing classes. The client reports a recent medication change a little over a week ago by going on Depakote. The client denies current HI with no intent or plans. The client reports NSSI by cutting since the age of 10. The client states they use to cut their wrist but now cuts their thighs and legs. The client reports to have never needed medical attention for their NSSI and they are superficial cuts. The client reports current fleeting suicidal thoughts over the last week. The client reports their intent to be a 3 out of 10 and a plan of overdosing on their medications. The client reports having access to medications, SHARPS and ropes. The client identifies their deterrents as their family, friends and partner. The client expressed interest in inpatient treatment for stabilization and medication management. The client then stated they wanted to go home and engaged in a safety plan with this clinician. The client's mother will remove all access to means within the home and hand out the client's medications daily. The client will see their therapist 05/21 and their psychiatrist 05/22. The client denied wanting to complete an intake packet with this clinician as they are actively enrolled in services elsewhere. Plan/Disposition Recommended Disposition: Community resources. Plan: The client was safety planned home. The client's mother will remove all access to means within the home and hand out the client's medications daily. The client will see their therapist 05/21 and their psychiatrist 05/22. [facility]88 information was provided to the client. Reports/communication Outcome discussed with: ED/Personnel
--- NOTE | 2025-05-21 01:50 | N[facility].SBSAF_ITS ---
Date of service: 05/20/25 Time of Service: 23:45 Branden-Brown Safety Plan Step 1: Warning signs 1.: I cry for hours 2.: I listen to sad music 3.: I self isolate Step 2: Internal Coping Strategies Things I can do to take my mind off my problems without contacting another person: 1.: I do my nails 2.: I go for a walk 3.: I scroll on social media Step 3: People and Social Settings People and social settings that provide distraction: 1. Name: Vladimir (friend) 2. Name: Catherine (mom) 3. Place: Timbo (boyfriend) Step 4: Assistance People whom I can ask for help during a crisis: 1. Name: Catherine (mom) 2. Name: Timbo (boyfriend) 3. Name: Vladimir (friend) Step 5: Professionals/Agencies Professionals or agencies I can contact during a crisis: 1. Clinician/Agency Name: [facility] 1. 2. Clinician/Agency Name: Dong Luis 2. 3. Local Emergency Department: [facility] [address] [place] [address] 4. [facility] ([facility]) Mobile Crisis Suicide Prevention Lifeline Phone: [phone] Step 6: Making the Environment Safer Making the environment safer (plan for lethal means safety): 1.: Remove all access to means 2.: Client's mom hands out daily medications Copy to Patient/Family Provided a copy of the Branden Brown Safety Plan to Patient/Family: Yes Branden Meeks Copyright [facility] Safety Planning Intervention The Branden-Brown Safety Plan is copyrighted by Stefany Otero, PhD & Stuart Meeks, PhD (2020). Individual use of the Branden-Brown Safety Plan form is permitted. Written permission from the authors is required for any changes to this form or use of this form in the electronic medical record. Additional resources are available from www.suicidesafetyplan.com.
== END 2025-05-21 00:09 | disposition home or self-care (01) ==
PROVIDERS: Registered Nurse Emergency; Emergency Provider Emergency Medicine; PCP Physician Assistant Medical
DX: R45.851 Suicidal ideations; S70.311A Abrasion, right thigh, initial encounter; X78.1XXA Intentional self-harm by knife, initial encounter
CPT/HCPCS: 99284; 99285; 36415; 00123; 80307; 96127; 80178; 81003; 81015